=== PATIENT | female | born 1995 | race Caucasian/White ===

== ENCOUNTER 2018-06-18 23:26 | Outpatient (CLI) | payer OTHER ==
[2018-06-19 01:32] LABS: ADD UMIC YES; UR ASCORBIC ACID NEGATIVE (NEGATIVE); UR BACTERIA FEW /HPF (NONE SEEN); UR BILIRUBIN (Dip) NEGATIVE (NEGATIVE); UR BLOOD (Dip) NEGATIVE (NEGATIVE); UR CALCIUM OXALATE CRYSTAL FEW /HPF (NONE SEEN); UR CLARITY SLIGHTLY CLOUDY (CLEAR); UR COLOR YELLOW (YELLOW); UR GLUCOSE (Dip) NEGATIVE (NEGATIVE); UR KETONES (Dip) NEGATIVE (NEGATIVE); UR LEUKOCYTE ESTERASE (Dip) 3+ Leu/ul (NEGATIVE); UR MUCUS FEW /HPF (NONE SEEN); UR NITRITE (Dip) NEGATIVE (NEGATIVE); UR RBC 1 /HPF (0-5); UR SPECIFIC GRAVITY (Dip) 1.018 (1.003-1.030); UR SQUAMOUS EPITHELIAL CELL FEW /HPF (FEW); UR TOTAL PROTEIN (Dip) NEGATIVE (NEGATIVE); UR UROBILINOGEN (Dip) NEGATIVE (NEGATIVE); UR WBC 4 /HPF (0-5)
== END 2018-06-19 02:50 | disposition home or self-care (01) ==
LOC: OBT 23:26 → L-D 23:27
DX: O62.9 Abnormality of forces of labor, unspecified (principal); Z3A.38 38 weeks gestation of pregnancy
CPT/HCPCS: 76818; 81001; 87086

== ENCOUNTER 2018-06-23 18:33 | Outpatient (CLI) | payer OTHER ==
[2018-06-23 20:13] LABS: ADD UMIC YES; UR ASCORBIC ACID NEGATIVE (NEGATIVE); UR BACTERIA FEW /HPF (NONE SEEN); UR BILIRUBIN (Dip) 1+ mg/dL (NEGATIVE); UR BLOOD (Dip) NEGATIVE (NEGATIVE); UR CALCIUM OXALATE CRYSTAL MODERATE /HPF (NONE SEEN); UR CLARITY SLIGHTLY CLOUDY (CLEAR); UR COLOR YELLOW (YELLOW); UR GLUCOSE (Dip) NEGATIVE (NEGATIVE); UR KETONES (Dip) NEGATIVE (NEGATIVE); UR LEUKOCYTE ESTERASE (Dip) TRACE Leu/ul (NEGATIVE); UR MUCUS MANY /HPF (NONE SEEN); UR NITRITE (Dip) NEGATIVE (NEGATIVE); UR RBC 1 /HPF (0-5); UR SQUAMOUS EPITHELIAL CELL MODERATE /HPF (FEW); UR TOTAL PROTEIN (Dip) 1+ mg/dl (NEGATIVE); UR UROBILINOGEN (Dip) 2+ mg/dL (NEGATIVE); UR WBC 3 /HPF (0-5)
== END 2018-06-23 21:53 | disposition home or self-care (01) ==
LOC: OBT 18:33 → L-D 18:35 → OBT 21:53
DX: O62.9 Abnormality of forces of labor, unspecified (principal); Z3A.38 38 weeks gestation of pregnancy
CPT/HCPCS: 76815; 81001

== ENCOUNTER 2018-06-29 16:26 | Inpatient (IN) | payer OTHER ==
[2018-06-29] MEDS ORDERED: LACTATED RINGER'S 1,000 ML IV (21:01)
[2018-06-29] MEDS: LACTATED RINGER'S 1,000 ML IV* (21:25)
[2018-06-29] MEDS ORDERED: METHYLERGONOVINE 0.2 MG INJ IM (21:30)
[2018-06-29] MEDS ORDERED: MISOPROSTOL 200 MCG TAB PR (21:30)
[2018-06-29] MEDS ORDERED: OXYTOCIN 30 UNITS/LR 500 ML IV ×2 (21:30)
[2018-06-29] MEDS ORDERED: CARBOPROST 250 MCG INJ IM (21:30)
[2018-06-29 22:02] LABS: ADD MAN DIFF? NO
[2018-06-29 22:13] LABS: BASOPHILS % 0.4 % (0.0-2.0); EOSINOPHILS % 0.2 % (0.0-7.0); HEMATOCRIT 28.9 % (37.0-47.0); HEMOGLOBIN 9.1 g/dl (12.0-16.0); LYMPHOCYTES # 1.8 10^3/ul (0.8-2.9); LYMPHOCYTES % 31.4 % (15.0-51.0); MEAN CORPUSCULAR HEMOGLOBIN 25.4 pg (29.0-33.0); MEAN CORPUSCULAR HGB CONC 31.5 g/dl (32.0-37.0); MEAN CORPUSCULAR VOLUME 80.7 fl (82.0-101.0); MEAN PLATELET VOLUME 10.5 fl (7.4-10.4); MONOCYTE # 0.3 10^3/ul (0.3-0.9); MONOCYTES % 5.4 % (0.0-11.0); NEUTROPHIL # 3.5 10^3/ul (1.6-7.5); NEUTROPHILS % 62.2 % (39.0-77.0); PLATELET COUNT 216 10^3/UL (140-415); RED BLOOD COUNT 3.58 10^6/ul (4.20-5.40); RED CELL DISTRIBUTION WIDTH 16.6 % (11.5-14.5)
[2018-06-29 22:13] LABS: WHITE BLOOD COUNT 5.6 10^3/ul (4.8-10.8)
[2018-06-29 22:30] LABS: INR 0.93; PROTIME 12.5 Sec (11.9-14.9)
[2018-06-29 22:31] LABS: PARTIAL THROMBOPLASTIN TIME 25.6 Sec (25.0-35.0)
[2018-06-29 22:59] LABS: HEPATITIS B SURFACE ANTIGEN NEGATIVE (NEGATIVE)
[2018-06-30] MEDS: LACTATED RINGER'S 1,000 ML IV* (03:07)
[2018-06-30] MEDS: OXYTOCIN 30 UNITS/LR 500 ML IV ×3 (04:08→11:41)
[2018-06-30] MEDS: BUTORPHANOL 2 MG INJ IV ×2 (04:20→07:02)
[2018-06-30] MEDS: MINERAL OIL LIGHT 10 ML VIAL TOP (09:26)
[2018-06-30] MEDS: LIDOCAINE 1% (MPF) 30 ML INJ INJ (09:26)
[2018-06-30] MEDS: IBUPROFEN 600 MG TAB PO ×4 (10:40→23:55)
[2018-06-30] MEDS ORDERED: DEXTROSE 5%-LR 1,000 ML IV (11:29)
[2018-06-30] MEDS ORDERED: LACTATED RINGER'S 1,000 ML IV* (11:29)
[2018-06-30] MEDS ORDERED: DIBUCAINE 1% 30 GM OINT PR (11:30)
[2018-06-30] MEDS ORDERED: ACETAMINOPHEN 325 MG TAB PO (11:30)
[2018-06-30] MEDS ORDERED: MISOPROSTOL 200 MCG TAB PR (11:30)
[2018-06-30] MEDS ORDERED: CARBOPROST 250 MCG INJ IM (11:30)
[2018-06-30] MEDS ORDERED: OXYTOCIN 30 UNITS/LR 500 ML IV (11:30)
[2018-06-30] MEDS ORDERED: METHYLERGONOVINE 0.2 MG INJ IM (11:30)
[2018-06-30] MEDS ORDERED: ZOLPIDEM 5 MG TAB PO (11:30)
[2018-06-30] MEDS ORDERED: ONDANSETRON 4 MG INJ IV (11:30)
[2018-06-30] MEDS ORDERED: DIPHENHYDRAMINE 50 MG INJ IV (11:30)
[2018-06-30] MEDS: OXYCODONE/ASPIRIN (4.88/325) TAB PO (12:13)
[2018-06-30] MEDS: BENZOCAINE 20% 56 ML SPRAY TOP (17:29)
[2018-06-30] MEDS: WITCH HAZEL/GLYCERIN PAD PR (17:29)
[2018-06-30] MEDS: LANOLIN 7 GM TUBE TOP (17:29)
[2018-06-30 19:17] LABS: RAPID PLASMA REAGIN NONREACTIVE (NR)
[2018-06-30] MEDS: SENNA/DOCUSATE NA (8.6MG/50MG) TAB PO (21:06)
[2018-07-01] MEDS: IBUPROFEN 600 MG TAB PO ×3 (05:47→18:05)
[2018-07-01 09:01] LABS: ADD MAN DIFF? NO
[2018-07-01 09:16] LABS: BASOPHILS % 0.3 % (0.0-2.0); EOSINOPHILS % 0.6 % (0.0-7.0); HEMATOCRIT 26.9 % (37.0-47.0); HEMOGLOBIN 8.4 g/dl (12.0-16.0); LYMPHOCYTES # 2.3 10^3/ul (0.8-2.9); LYMPHOCYTES % 31.7 % (15.0-51.0); MEAN CORPUSCULAR HEMOGLOBIN 25.1 pg (29.0-33.0); MEAN CORPUSCULAR HGB CONC 31.2 g/dl (32.0-37.0); MEAN CORPUSCULAR VOLUME 80.3 fl (82.0-101.0); MEAN PLATELET VOLUME 11.3 fl (7.4-10.4); MONOCYTE # 0.5 10^3/ul (0.3-0.9); MONOCYTES % 6.7 % (0.0-11.0); NEUTROPHIL # 4.3 10^3/ul (1.6-7.5); NEUTROPHILS % 60.1 % (39.0-77.0); PLATELET COUNT 169 10^3/UL (140-415); RED BLOOD COUNT 3.35 10^6/ul (4.20-5.40); RED CELL DISTRIBUTION WIDTH 16.9 % (11.5-14.5)
[2018-07-01 09:16] LABS: WHITE BLOOD COUNT 7.2 10^3/ul (4.8-10.8)
[2018-07-01] MEDS: POLYSACCHARIDE IRON COMPLEX CAP PO (21:33)
[2018-07-01] MEDS: DOCUSATE SODIUM 100 MG CAP PO (21:33)
[2018-07-02] MEDS: IBUPROFEN 600 MG TAB PO ×3 (00:09→12:02)
[2018-07-02] MEDS: POLYSACCHARIDE IRON COMPLEX CAP PO ×2 (09:00→09:22)
[2018-07-02 09:02] LABS: ADD MAN DIFF? NO
[2018-07-02 09:11] LABS: WHITE BLOOD COUNT 7.5 10^3/ul (4.8-10.8)
[2018-07-02 09:11] LABS: BASOPHILS % 0.5 % (0.0-2.0); EOSINOPHILS # 0.1 10^3/ul (0.0-0.5); EOSINOPHILS % 1.7 % (0.0-7.0); HEMATOCRIT 28.7 % (37.0-47.0); HEMOGLOBIN 8.9 g/dl (12.0-16.0); LYMPHOCYTES # 2.7 10^3/ul (0.8-2.9); LYMPHOCYTES % 35.8 % (15.0-51.0); MEAN CORPUSCULAR HEMOGLOBIN 25.2 pg (29.0-33.0); MEAN CORPUSCULAR VOLUME 81.3 fl (82.0-101.0); MONOCYTE # 0.4 10^3/ul (0.3-0.9); MONOCYTES % 5.1 % (0.0-11.0); NEUTROPHIL # 4.2 10^3/ul (1.6-7.5); NEUTROPHILS % 56.4 % (39.0-77.0); PLATELET COUNT 175 10^3/UL (140-415); RED BLOOD COUNT 3.53 10^6/ul (4.20-5.40)
[2018-07-02] MEDS: DOCUSATE SODIUM 100 MG CAP PO (09:22)
[2018-07-02] MEDS: MEASLES,MUMPS,RUBELLA VACCINE INJ SC* (09:22)
[2018-07-02] MEDS: DIPHTH/TET/ACEL PERTUSS (ADULT) 0.5 ML VIAL IM* (09:22)
== END 2018-07-02 14:03 | disposition home or self-care (01) | DRG 775 ==
LOC: OBT 16:26 → PP1 06-30 11:10 → L-D 16:27 → OBT 20:45 → L-D 20:45
PROVIDERS: Obstetrics & Gynecology
PROC: 10E0XZZ Delivery of Products of Conception, External Approach (ICD-10-PCS; principal; 2018-06-30)
PROC: 0HQ9XZZ Repair Perineum Skin, External Approach (ICD-10-PCS; 2018-06-30)
DX: O70.0 First degree perineal laceration during delivery (principal); O99.02 Anemia complicating childbirth; D50.9 Iron deficiency anemia, unspecified; R53.83 Other fatigue; Z37.0 Single live birth; Z3A.39 39 weeks gestation of pregnancy
CPT/HCPCS: 36415; 76815; 85025; 85610; 85730; 86592; 86850; 86900; 86901; 87340; 96360